=== PATIENT | female | born 2000 | race Caucasian/White ===

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

== ENCOUNTER 2020-11-03 22:57 | Emergency (ER) | payer OTHER ==
[~2020-11-03] VITALS: Ht 167.6 cm; Wt 59.1 kg
[~2020-11-03 22:57] MED LIST: DOXYCYCLINE HY100 MG PO; YAZ 28 3 MG-0.01 TAB PO
[2020-11-04 02:57] LABS: BASO % 0.5 % (0.0-2.0); EOS % 0.7 % (0-4.0); GRAN # 3.5 (1.4-6.5); GRAN % 85.1 % (42.2-75.2); HEMOGLOBIN 12.7 g/dl (12.5-16.0); LYMPH # 0.2 (1.2-3.4); LYMPH % 5.3 % (20.0-51.0); MEAN CELL VOLUME 94 fl (80.0-100.0); MEAN CORPUSCULAR HEMOGLOBIN 31 pg (27.0-31.0); MEAN CORPUSCULAR HGB CONC 33 g/dl (33.0-37.0); MEAN PLATELET VOLUME 9.9 fl (7.4-10.4); MONO # 0.3 (0.1-0.6); MONO % 7.7 % (1.7-9.3); PLATELET COUNT 222 K/mm3 (130-400); RED BLOOD COUNT 4.17 M/mm3 (4.10-5.30); REDCELL DISTRIBUTION WIDTH-CV 13.1 % (11.5-14.5)
[2020-11-04 03:12] LABS: ALBUMIN 4.7 gm/dL (3.5-5.0); BILIRUBIN,TOTAL 0.4 mg/dL (0.0-1.0); C-REACTIVE PROTEIN 1.6 mg/dL (0.0-0.9); CALCIUM 9.4 mg/dL (8.4-10.2); CREATININE, serum 0.76 (0.52-1.25); POTASSIUM 3.3 mmol/L (3.4-5.0); TOTAL PROTEIN 8.8 gm/dL (6.4-8.2)
[2020-11-04 05:45] VITALS: BP 107/68; PULSE 98; TEMP 98.3
== END 2020-11-04 05:45 | disposition home or self-care (01) ==
LOC: COL.ER 22:57
PROVIDERS: Emergency Medicine
DX: R50.9 Fever, unspecified (principal); T50.B95A Adverse effect of other viral vaccines, initial encounter; R00.0 Tachycardia, unspecified; M79.10 Myalgia, unspecified site; R11.2 Nausea with vomiting, unspecified; Z32.02 Encounter for pregnancy test, result negative
CPT/HCPCS: J1885; J2060; J2405; J7030